=== PATIENT | male | born 1995 | race Hispanic/Latino ===

== ENCOUNTER 2017-10-30 01:19 | Emergency (ER) | payer SELFPAY ==
[~2017-10-30] VITALS: Ht 185.4 cm; Wt 136.0 kg
[2017-10-30 02:29] LABS: HEMATOCRIT 41.7 % (39.0-50.0); HEMOGLOBIN 13.7 g/dl (14.0-18.0); IMMATURE GRANULOCYTES 0.6 % (0.0-1.0); MEAN CELL VOLUME 90.3 fL CALC (80.0-100.0); MEAN CORPUSCULAR HGB 29.7 pG CALC (26.0-32.0); MEAN CORPUSCULAR HGB CONC 32.9 g/L CALC (32.0-36.0); NEUT# 6.33 thou/uL (1.82-7.42); RED BLOOD COUNT 4.62 mill/uL (4.70-6.10); RED CELL DISTRI WIDTH 12.6 % (11.5-15.5)
[2017-10-30 02:42] LABS: ALBUMIN 4.7 g/dL (3.2-5.0); ALKALINE PHOSPHATASE 128 u/l (38-126); ANION GAP 23 (6-22 (CALC)); BILIRUBIN, TOTAL 0.3 mg/dL (0.0-1.4); BUN 7 mg/dL (9-20); BUN/CREATININE RATIO 7 (12-20 (CALC)); CARBON DIOXIDE 21 mmol/l (22-30); CHLORIDE 109 mmol/l (95-108); CREATININE 0.9 mg/dL (0.7-1.3); ETHYL ALCOHOL 141 mg/dl (0-30); GFR > 60 ML/MIN (>=60 (CALC)); GFR FOR AFR.AMER. > 60 ML/MIN (>=60 (CALC)); POTASSIUM 3.9 mmol/l (3.5-5.1); SGOT/AST 27 u/l (17-59); SGPT/ALT 39 u/l (21-72); SODIUM 149 mmol/l (137-146)
[2017-10-30] MEDS ORDERED: ULTRAM50 M1 PO (04:45)
[2017-10-30 04:51] LABS: URINE BILIRUBIN - DIPSTICK NEGATIVE (NEGATIVE); URINE BLOOD DIPSTICK NEGATIVE (NEGATIVE); URINE COLOR YELLOW; URINE GLUCOSE - DIPSTICK NEGATIVE (NEGATIVE); URINE KETONE NEGATIVE (NEGATIVE); URINE LEUK ESTERASE NEGATIVE (NEGATIVE); URINE NITRITE - DIPSTICK NEGATIVE (Negative); URINE PH 6.5 (4.5-8.0); URINE PROTEIN - DIPSTICK NEGATIVE (NEG-TRACE); URINE UROBILINOGEN - DIPSTICK 0.2 E.U./dL (0.2)
[2017-10-30 04:57] LABS: BARBITURATES NEGATIVE (NEGATIVE); COCAINE POSITIVE (NEGATIVE); METHADONE NEGATIVE (NEGATIVE); OXCYCODONE NEGATIVE (NEGATIVE); TETRAHYDROCANNABIONOL POSITIVE (NEGATIVE); TRICYLIC ANTIDEPRESSANTS NEGATIVE (NEGATIVE)
[2017-10-30 04:58] VITALS: BP 139/68
[2017-10-30 04:58] LABS: URINE CLARITY CLEAR
== END 2017-10-30 05:26 | disposition home or self-care (01) | DRG 605 ==
LOC: ED 01:19
PROVIDERS: Emergency Medicine
DX: S20.219A Contusion of unspecified front wall of thorax, initial encounter (principal); V48.5XXA Car driver injured in noncollision transport accident in traffic accident, initial encounter
CPT/HCPCS: Q9967

== ENCOUNTER 2022-08-26 14:58 | Emergency (ER) | payer SELFPAY ==
[~2022-08-26] VITALS: Ht 185.4 cm; Wt 75.0 kg
[~2022-08-26 14:58] MED LIST: ULTRAM50 M1 PO
[2022-08-26 17:25] VITALS: BP 126/85
[2022-08-26] MEDS ORDERED: KEFLEX500 MG PO (17:38)
[2022-08-26] MEDS ORDERED: HYDROCO/APAP1 TA9 PO (17:38)
== END 2022-08-26 17:31 | disposition home or self-care (01) | DRG 605 ==
LOC: ED 14:58
PROC: 0HQEXZZ Repair Left Lower Arm Skin, External Approach (ICD-10-PCS; principal; 2022-08-26)
DX: S61.512A Laceration without foreign body of left wrist, initial encounter (principal); W29.3XXA Contact with powered garden and outdoor hand tools and machinery, initial encounter